=== PATIENT | male | born 1980 ===

== ENCOUNTER 2020-04-23 13:00 | Emergency (ER) | payer BC ==
[~2020-04-23] VITALS: Ht 185.4 cm; Wt 97.5 kg
[2020-04-23] MEDS ORDERED: ZOFRAN8 MG PO (22:59)
[2020-04-23] MEDS ORDERED: PEPCID AC20 MG PO (22:59)
== END 2020-04-23 23:17 | disposition home or self-care (01) ==
LOC: ER 13:00
DX: K52.89 Other specified noninfective gastroenteritis and colitis (principal); Z20.828 Contact with and (suspected) exposure to other viral communicable diseases